=== PATIENT | female | born 1955 | race Caucasian/White ===

== ENCOUNTER → 2017-10-11 | Outpatient (CLI) | payer OTHER | LOC: CIMAGING 10:54 | PROVIDERS: ATTEND Obstetrics & Gynecology | DX: Z12.31 Encounter for screening mammogram for malignant neoplasm of breast (principal) | CPT/HCPCS: G0202 ==

== ENCOUNTER → 2017-12-08 | Outpatient (CLI) | payer OTHER | LOC: FIMAGING 14:43 | PROVIDERS: ATTEND Obstetrics & Gynecology | DX: Z13.820 Encounter for screening for osteoporosis (principal); M81.0 Age-related osteoporosis without current pathological fracture ==

== ENCOUNTER 2019-02-12 22:01 | Emergency (ER) | payer OTHER ==
[2019-02-12] MEDS ORDERED: TDAP ADULT 0.5 ML INJ (BOOSTRIX) IM ONE (22:18)
[2019-02-12] MEDS ORDERED: AMOXICILLIN/CLAVULANATE POT 875/125 MG TAB PO ONE (22:18)
--- NOTE | 2019-02-12 22:26 | EDPHY ---
H & P Time Seen by Provider: 02/12/19 22:10 HPI/ROS: HPI Cat bite wounds to left forearm. 63-year-old female by private vehicle with friend and neighbor. This patient was trying to break up a fight between her 12-year-old cat and another cat. In doing so, her cat attacked her left forearm scratching and biting it in multiple places. She is right-hand dominant. She cannot remember the last time she had a tetanus shot. She denies any other injury or complaint. No distal loss of sensation or weakness. ROS: Constitutional: No fever, no chills. No weakness. Musculoskeletal: Left forearm pain as above. Skin: Cat bite and scratch ernandez to above forearm. Neurological: No focal weakness or altered sensation. Past medical history: Acid reflux, bladder problems, depression, asthma. Social history: Nonsmoker. Here with neighbor and friend. No alcohol. Physical Exam: General Appearance: Alert, no distress. This patient is responding to questions appropriately and in full sentences. This patient appears well- hydrated and well-nourished. Eyes: Pupils equal and round no pallor or injection. No lid edema, erythema or injection. Left upper extremity exam: Significant for multiple small scratch ernandez and puncture wounds primarily ventral aspect of distal wrist up through proximal forearm. No suturable lacerations. She has some associated ecchymosis with a couple of the thumb. No palpable foreign body noted on inspection of these wounds. The left upper extremity is neurovascularly intact. Neurological: Motor sensory function is grossly intact. Cranial nerves are normal. Gait is normal. Skin: Warm and dry, no rashes. As above. Extremities are symmetrical. All joints range without pain or impingement. Psychiatric: No agitation. No depression. Database: EKG: Imaging: The form x-ray series: Negative for fracture, subluxation, dislocation, radiopaque foreign body. Interpreted by me. Procedures: Emergency department course: Triage vital signs reviewed and are normal. Patient was sent for x-rays to evaluate for possible retained foreign body in some these wounds. All wounds were thoroughly cleansed and irrigated. Nothing suturable. Her medication allergies were reviewed. The patient was given a Boostrix vaccine. She will be given [place] and ibuprofen as needed for pain. She was given 875 mg of Augmentin. Results of x-rays discussed with the patient. Wound care was discussed with her. She feels comfortable going home with her friend and neighbor. Follow-up and return to emergency department precautions reviewed. She will be prescribed Augmentin. I discussed pain medication dosing with her. All of her questions were answered. She was discharged from the emergency department in good condition. Differential Diagnosis: The differential diagnosis on this patient includes but is not limited to cat bite and scratch wounds to left forearm. Significant neurovascular injury, retained foreign body unlikely. This represents a partial list of diagnoses considered. These considerations are based on history, physical exam, past history, reassessment and diagnostic testing. Smoking Status: Never smoked Constitutional: Initial Vital Signs Temperature (C) 36.9 C 02/12/19 22:13 Heart Rate 74 02/12/19 22:13 Respiratory Rate 18 02/12/19 22:13 Blood Pressure 133/93 H 02/12/19 22:13 O2 Sat (%) 95 02/12/19 22:13 O2 Delivery Mode Room Air Allergies/Adverse Reactions: No Known Allergies Allergy (Verified 02/12/19 22:11) Home Medications: Medication Instructions Recorded Nasonex 10/17/09 Singulair 10/17/09 Symbicort 160-4.5 Mcg Inhaler 10/17/09 Pantoprazole Sodium 10/27/14 Amoxicillin/Clavulanate Pot 875 mg PO BID 5 Days tab 02/12/19 [Augmentin 875 mg tab] Escitalopram Oxalate [Lexapro 10 02/12/19 MG] Omeprazole Magnesium [Prilosec] 02/12/19 Medical Decision Making - Data Points Medications Given: Discontinued Medications Amoxicillin/Clavulanate Potassium (Augmentin 875mg) 875 mg PO EDNOW ONE PRN Reason: Protocol Stop: 02/12/19 22:19 Last Admin: 02/12/19 22:24 Dose: 875 mg Diphtheria/Tetanus/Acell Pertussis (Boostrix) 0.5 ml IM .ONCE ONE Stop: 02/12/19 22:19 Last Admin: 02/12/19 22:25 Dose: 0.5 ml Departure - Departure Disposition: Home, Routine, Self-Care Clinical Impression: Cat bite of left forearm Condition: Good Instructions: Animal Bite (ED) Additional Instructions: Read and follow provided instructions. Follow-up with your primary care physician in 2 days for re-evaluation and wound check. Ibuprofen dosin mg every 6 hours with meals for the next 3 days only. Take only as needed for pain. Do not take other nonsteroidal anti inflammatory medications with this. Narcotic pain medication: Take 1 every 4-6 hours as needed for pain. Do not drive on this medication. Take antibiotic through entire course of treatment. Return to the emergency department for worsening pain, swelling, redness associated with the wounds, fever or other serious concerns. Prescriptions: Amoxicillin/Clavulanate Pot [Augmentin 875 mg tab] 875 mg PO BID 5 Days tab
[2019-02-12] MEDS ORDERED: IBUPROFEN 600 MG TAB PO ONE (22:30)
[2019-02-12] MEDS ORDERED: HYDROCOD/APAP 5/325 PREPACK#6 BTL TAKEHOME ONE (22:38)
[2019-02-12 22:50] VITALS: BP 122/84
== END 2019-02-12 23:15 | disposition home or self-care (01) ==
LOC: CED 22:01
DX: S51.851A Open bite of right forearm, initial encounter (principal); W55.01XA Bitten by cat, initial encounter; Z23 Encounter for immunization
CPT/HCPCS: 73090-PO; 90471-ER; 99283-ER